=== PATIENT | male | born 1990 | race African-American/Black ===

== ENCOUNTER 2016-04-27 04:52 | Emergency (ER) | payer OTHER ==
[2016-04-27] MEDS ORDERED: ONDANSETRON 4MG/2ML VIAL (J2405) As Ordered ONE (05:59)
[2016-04-27 06:30] LABS: BASO % 0.2 % (0.0-1.0); EOS # 0.2 K/mm3 (0.0-0.50); EOS % 1.5 % (0.0-3.0); LARGE UNSTAINED CELL # 0.1 K/mm3 (0.0-0.4); LARGE UNSTAINED CELL % 0.5 % (0.0-4.0); LYMPH # 0.5 K/mm3 (1.5-6.5); LYMPH % 4.5 % (24.0-44.0); MEAN CORPUSCULAR HEMOGLOBIN 29.8 pg (27.0-33.0); MEAN CORPUSCULAR HGB CONC 34.2 g/dl (32.0-36.5); MEAN CORPUSCULAR VOLUME 87.3 fl (80.0-96.0); MONO # 0.6 K/mm3 (0.0-0.8); MONO % 5.7 % (0.0-5.0); NEUTROPHILS # 9.4 K/mm3 (1.8-7.7); NEUTROPHILS % 87.6 % (36.0-66.0); PLATELET COUNT, AUTOMATED 169 k/mm3 (150-450); RED CELL DISTRIBUTION WIDTH 12.7 % (11.5-14.5); WHITE BLOOD COUNT 10.7 K/mm3 (4.0-10.0)
[2016-04-27 06:52] LABS: ALBUMIN 4.2 GM/DL (3.2-5.2); ALBUMIN/GLOBULIN RATIO 1.31 (1.00-1.93); ALKALINE PHOSPHATASE 80 U/L (45-117); ALT/SGPT 23 U/L (12-78); ANION GAP 10 MEQ/L (8-16); AST/SGOT 21 U/L (15-37); BILIRUBIN,DIRECT 0.2 MG/DL (0.0-0.2); BILIRUBIN,TOTAL 1.1 MG/DL (0.2-1.0); BLOOD UREA NITROGEN 22 MG/DL (7-18); CALCIUM LEVEL 8.9 MG/DL (8.5-10.1); CARBON DIOXIDE LEVEL 30 MEQ/L (21-32); CHLORIDE LEVEL 103 MEQ/L (98-107); CREATININE FOR GFR 1.19 MG/DL (0.70-1.30); GLOMERULAR FILTRATION RATE > 60.0 (>60); GLUCOSE, FASTING 100 MG/DL (70-105); POTASSIUM SERUM 4.1 MEQ/L (3.5-5.1); SODIUM LEVEL 143 MEQ/L (136-145); TOTAL PROTEIN 7.4 GM/DL (6.4-8.2)
--- NOTE | 2016-04-27 07:50 | EDDOCDS ---
Physician Documentation [facility] Name: Heydi Castro Age: 26 yrs Sex: Male : 1990 Arrival Date: 04/27/2016 Time: 04:52 Bed 14 Private MD: Disposition: 04/27/16 07:27 Discharged to Home/Self Care. Impression: Vomiting, Diarrhea, unspecified. - Condition is Stable. - Discharge Instructions: Diarrhea, Nausea and Vomiting, Diarrhea, [id number]. - Prescriptions for ZOFRAN ODT 4 mg - dissolve 1 tablet by ORAL route 4 times per day As needed do not chew, do not swallow whole; 10 tablet. - Medication Reconciliation, Local Pharmacy Hours form. - Follow up: [facility]; When: Call to arrange an appointment. - Problem is new. - Symptoms are resolved. Historical: - Allergies: No known drug Allergies; - Home Meds: 1. none - PMHx: none; - PSHx: left ankle; - Social history: Smoking status: Patient states was never smoker of tobacco. No barriers to communication noted, The patient speaks fluent Maltese. - Family history: Not pertinent. - : The pt / caregiver states he / she is not on anticoagulants. Home medication list is obtained from the patient. - Exposure Risk Screening:: None identified. Vital Signs: 04/27 05:00 BP 141 / 76; Pulse 74; Resp 18 S; Temp 97.0(TE); Pulse Ox 97% on R/A; Weight 76.2 kg / af2 167.99 lbs (R); Height 5 ft. 8 in. (172.72 cm) (R); Pain 4/10; 07:12 BP 122 / 65; Pulse 56; Resp 16; Temp 97.6(O); Pulse Ox 99% on R/A; Pain 0/10; ja5 05:00 Body Mass Index 25.54 (76.20 kg, 172.72 cm) af2 MDM: 05:43 IV Saline Lock ordered. br1 05:43 NS 0.9% 1000 ml IV at bolus once ordered. br1 05:43 Ondansetron 4 mg IVP once ordered. br1 05:44 CBC with Diff Ordered. EDMS 05:44 BMP Ordered. EDMS 05:44 Liver Profile Ordered. EDMS 05:44 Lipase Ordered. EDMS 07:01 CBC with Diff Reviewed. sd1 07:01 BMP Reviewed. sd1 07:01 Liver Profile Reviewed. sd1 07:01 Lipase Reviewed. sd1 07:02 Fluid Challenge ordered. sd1 07:41 Financial registration complete. mm15 Administered Medications: 06:00 Drug: NS 0.9% 1000 ml [sodium chloride 0.9 % intravenous solution] Route: IV; Rate: cf2 bolus; Site: left antecubital; 07:48 Follow up: IV Status: Completed infusion; IV Intake: 1000ml jc4 06:00 Drug: Ondansetron 4 mg [ondansetron HCl 2 mg/mL intravenous solution (2 mL)] Route: cf2 IVP; Site: left antecubital; Signatures: Dispatcher [employer] [facility] Lynda Hendrickson MD MD sd1 Caleb Stroud MD MD br1 Chantal Luna RN RN jc4 Cinthya Sr mm15 Judy Amador RN RN af2 Nia Pritchett RN RN cf2 MTDD
--- NOTE | 2016-04-27 07:50 | EDDOCDS ---
Nurse's Notes [facility] Name: Heydi Castro Age: 26 yrs Sex: Male : 1990 Arrival Date: 04/27/2016 Time: 04:52 Bed 14 Private MD: Diagnosis: Vomiting;Diarrhea, unspecified Presentation: 04/27 04:59 Presenting complaint: Patient states: nausea and vomiting, abdominal pain since af2 [id number] this am. reports bile. Risk factors: the patient reports not having a history of previous torsion. Adult Sepsis Screening: The patient does not have new or worsening altered mentation. Patient's respiratory rate is less than 22. Systolic blood pressure is greater than 100. Patient has a qSOFA score of 0- Negative Sepsis Screen. Suicide/Homicide risk assessment- the patient denies having any suicidal and/or homicidal ideations and does not present with any other emotional, behavioral or mental health complaints. 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 Transition of care: patient was not received from another setting of care. 04:59 Acuity: MAURICE Level 3 af2 04:59 Method Of Arrival: Walkin/Carried/Asstd af2 Triage Assessment: 05:01 General: Appears in no apparent distress, Behavior is cooperative. Pain: Denies pain. af2 Pt Declines HIV testing. GI: Reports lower abdominal pain, nausea, vomiting. Historical: - Allergies: No known drug Allergies; - Home Meds: 1. none - PMHx: none; - PSHx: left ankle; - Social history: Smoking status: Patient states was never smoker of tobacco. No barriers to communication noted, The patient speaks fluent [place]. - Family history: Not pertinent. - : The pt / caregiver states he / she is not on anticoagulants. Home medication list is obtained from the patient. - Exposure Risk Screening:: None identified. Screenin:41 Screening information is obtained from the patient. Fall risk: No risks identified. cf2 Assistance ADL's: requires no assistance with activities of daily living. Abuse/DV Screen: The patient / caregiver reports he/she is: not in a situation that causes fear, pain or injury. Nutritional screening: No deficits noted. Advance Directives: Further advance directive information is declined. home support is adequate. Assessment: 06:41 Adult Sepsis Screening: The patient does not have new or worsening altered mentation. cf2 Patient's respiratory rate is less than 22. Systolic blood pressure is greater than 100. Patient has a qSOFA score of 0- Negative Sepsis Screen. General: Appears distressed, Behavior is appropriate for age, cooperative. Pain: Denies pain. Neurological: No deficits noted. EENT: No deficits noted. Cardiovascular: No deficits noted. Respiratory: No deficits noted. GI: Abdomen is flat, non- distended Bowel sounds present X 4 quads. Abd is soft Abd is non tender Reports cramping, diarrhea, nausea, vomiting. : No deficits noted. Derm: No deficits noted. Musculoskeletal: No deficits noted. Injury Description: No known injury. 07:11 General: Appears in no apparent distress, Behavior is appropriate for age, cooperative. ja5 Pain: Denies pain. Neurological: Level of Consciousness is awake, alert, Oriented to person, place, time. Cardiovascular: Heart tones S1 S2 present. Respiratory: Airway is patent Respiratory effort is even, unlabored, Respiratory pattern is regular, symmetrical. GI: Abdomen is flat, non- distended Bowel sounds present X 4 quads. Abd is soft X 4 quads Abd is non tender X 4 quads Denies nausea. Derm: Skin is pink, warm & dry. 07:47 General: Appears in no apparent distress, Behavior is cooperative. Pain: Denies pain. jc4 Neurological: Level of Consciousness is awake, alert, Oriented to person, place, time. Respiratory: Airway is patent Respiratory effort is even, unlabored, Respiratory pattern is regular, symmetrical. GI: Reports tolerance of fluids, Denies nausea. Derm: Skin is pink, warm & dry. Vital Signs: 05:00 BP 141 / 76; Pulse 74; Resp 18 S; Temp 97.0(TE); Pulse Ox 97% on R/A; Weight 76.2 kg af2 (R); Height 5 ft. 8 in. (172.72 cm) (R); Pain 4/10; 07:12 BP 122 / 65; Pulse 56; Resp 16; Temp 97.6(O); Pulse Ox 99% on R/A; Pain 0/10; ja5 05:00 Body Mass Index 25.54 (76.20 kg, 172.72 cm) af2 Vitals: 05:00 Log In Time: April 27, 2016 at 04:54. af2 ED Course: 04:53 Patient visited by Nell Roca Reg. hs2 04:53 Patient moved to Waiting hs2 05:00 Triage Initiated af2 05:41 Judy Amador RN is Primary Nurse. sls1 05:41 Patient moved to 14 sls1 05:57 Primary Nurse role handed off by Judy Amador RN cf2 05:57 Nia Pritchett RN is Primary Nurse. cf2 05:57 Patient visited by Nia Pritchett RN. cf2 06:37 Patient visited by Nia Pritchett RN. cf2 06:41 Patient visited by Nia Pritchett RN. cf2 06:41 The patient / caregiver is instructed regarding the plan of care and ED course. Patient cf2 has correct armband on for positive identification. Placed in gown. Bed in low position. Call light in reach. Side rails up X 1. Side rails up X2. Adult w/ patient. Property :Personal belongings accompany Pt. Door closed. Noise minimized. Visitors limited. Lights dimmed. Moved to private room. Verbal reassurance given. Warm blanket given. Pillow given. Head of bed elevated. 06:41 Inserted saline lock: 20 gauge in left antecubital area and blood collected. The cf2 patient tolerated the procedure well. No procedures done that require assistance. 06:54 Patient visited by Nia Pritchett RN. cf2 06:58 Lynda Hendrickson MD is Attending Physician. sd1 06:58 Patient visited by Lynda Hendrickson MD. sd1 07:03 Chantal Luna, JOHN PAUL is Primary Nurse. jc4 07:05 Leyda Abreu,RN is Primary Nurse. ja5 07:12 Patient visited by Leyda Abreu,JOHN PAUL. ja5 07:19 Patient visited by Jessie Marcus. nb2 07:19 Diet: Patient given juice. Tolerated well. nb2 07:27 Marie Navas [facility] is Referral Physician. sd1 07:48 Discontinued lock intact, bleeding controlled, pressure dressing applied, No jc4 redness/swelling at site. Administered Medications: 06:00 Drug: NS 0.9% 1000 ml [sodium chloride 0.9 % intravenous solution] Route: IV; Rate: cf2 bolus; Site: left antecubital; 07:48 Follow up: IV Status: Completed infusion; IV Intake: 1000ml jc4 06:00 Drug: Ondansetron 4 mg [ondansetron HCl 2 mg/mL intravenous solution (2 mL)] Route: cf2 IVP; Site: left antecubital; Intake: 07:48 IV: 1000.00ml; Total: 1000.00ml. jc4 Order Results: Lab Order: CBC with Diff; SPEC'M 04/27/16 06:18 Test: WHITE BLOOD COUNT; Value: 10.7; Range: 4.0-10.0; Abnormal: Above high normal; Units: K/mm3; Status: F Test: RED BLOOD COUNT; Value: 5.39; Range: 4.30-6.10; Units: M/mm3; Status: F Test: HEMOGLOBIN; Value: 16.1; Range: 14.0-18.0; Units: g/dl; Status: F Test: HEMATOCRIT; Value: 47.0; Range: 42.0-52.0; Units: %; Status: F Test: MEAN CORPUSCULAR VOLUME; Value: 87.3; Range: 80.0-96.0; Units: fl; Status: F Test: MEAN CORPUSCULAR HEMOGLOBIN; Value: 29.8; Range: 27.0-33.0; Units: pg; Status: F Test: MEAN CORPUSCULAR HGB CONC; Value: 34.2; Range: 32.0-36.5; Units: g/dl; Status: F Test: RED CELL DISTRIBUTION WIDTH; Value: 12.7; Range: 11.5-14.5; Units: %; Status: F Test: PLATELET COUNT, AUTOMATED; Value: 169; Range: 150-450; Units: k/mm3; Status: F Test: NEUTROPHILS %; Value: 87.6; Range: 36.0-66.0; Abnormal: Above high normal; Units: %; Status: F Test: LYMPH %; Value: 4.5; Range: 24.0-44.0; Abnormal: Below low normal; Units: %; Status: F Test: MONO %; Value: 5.7; Range: 0.0-5.0; Abnormal: Above high normal; Units: %; Status: F Test: EOS %; Value: 1.5; Range: 0.0-3.0; Units: %; Status: F Test: BASO %; Value: 0.2; Range: 0.0-1.0; Units: %; Status: F Test: LARGE UNSTAINED CELL %; Value: 0.5; Range: 0.0-4.0; Units: %; Status: F Test: NEUTROPHILS #; Value: 9.4; Range: 1.8-7.7; Abnormal: Above high normal; Units: K/mm3; Status: F Test: LYMPH #; Value: 0.5; Range: 1.5-6.5; Abnormal: Below low normal; Units: K/mm3; Status: F Test: MONO #; Value: 0.6; Range: 0.0-0.8; Units: K/mm3; Status: F Test: EOS #; Value: 0.2; Range: 0.0-0.50; Units: K/mm3; Status: F Test: BASO #; Value: 0.0; Range: 0.0-0.2; Units: K/mm3; Status: F Test: LARGE UNSTAINED CELL #; Value: 0.1; Range: 0.0-0.4; Units: K/mm3; Status: F Lab Order: [facility]; SPEC'M 04/27/16 06:18 Test: GLUCOSE, FASTING; Value: 100; Range: 70-105; Units: MG/DL; Status: F Test: BLOOD UREA NITROGEN; Value: 22; Range: 7-18; Abnormal: Above high normal; Units: MG/DL; Status: F Test: CREATININE FOR GFR; Value: 1.19; Range: 0.70-1.30; Units: MG/DL; Status: F Test: GLOMERULAR FILTRATION RATE; Value: > 60.0; Range: >60; Status: F Test: SODIUM LEVEL; Value: 143; Range: 136-145; Units: MEQ/L; Status: F Test: POTASSIUM SERUM; Value: 4.1; Range: 3.5-5.1; Units: MEQ/L; Status: F Test: CHLORIDE LEVEL; Value: 103; Range: 98-107; Units: MEQ/L; Status: F Test: CARBON DIOXIDE LEVEL; Value: 30; Range: 21-32; Units: MEQ/L; Status: F Test: ANION GAP; Value: 10; Range: 8-16; Units: MEQ/L; Status: F Test: CALCIUM LEVEL; Value: 8.9; Range: 8.5-10.1; Units: MG/DL; Status: F Test Note: ; Units are mL/min/1.73 m2 Chronic Kidney Disease Staging per NKF: Stage I & II GFR >=60 Normal to Mildly Decreased Stage III GFR 30-59 Moderately Decreased Stage IV GFR 15-29 Severely Decreased Stage V GFR <15 Very Little GFR Left ESRD GFR <15 on [employer] Lab Order: Liver Profile; SPEC'M 04/27/16 06:18 Test: AST/SGOT; Value: 21; Range: 15-37; Units: U/L; Status: F Test: ALT/SGPT; Value: 23; Range: 12-78; Units: U/L; Status: F Test: ALKALINE PHOSPHATASE; Value: 80; Range: 45-117; Units: U/L; Status: F Test: BILIRUBIN,TOTAL; Value: 1.1; Range: 0.2-1.0; Abnormal: Above high normal; Units: MG/DL; Status: F Test: BILIRUBIN,DIRECT; Value: 0.2; Range: 0.0-0.2; Units: MG/DL; Status: F Test: TOTAL PROTEIN; Value: 7.4; Range: 6.4-8.2; Units: GM/DL; Status: F Test: ALBUMIN; Value: 4.2; Range: 3.2-5.2; Units: GM/DL; Status: F Test: ALBUMIN/GLOBULIN RATIO; Value: 1.31; Range: 1.00-1.93; Status: F Lab Order: Lipase; SPEC'M 04/27/16 06:18 Test: LIPASE; Value: 99; Range: 73-393; Units: U/L; Status: F Outcome: 07:27 Discharge ordered by Provider. sd1 07:49 Discharge Assessment: Patient awake, alert and oriented x 3. No cognitive and/or jc4 functional deficits noted. Patient verbalized understanding of disposition instructions. patient administered narcotics - no. The following High Risk Discharge criteria are identified: None. Discharged to home ambulatory. Condition: stable. Discharge instructions given to patient, Instructed on discharge instructions, follow up and referral plans. medication usage, diet, Demonstrated understanding of instructions, medications, Pt was receptive of discharge instructions/ teaching. No special radiology studies were completed. 07:49 Patient left the ED. jc4 Signatures: Lynda Hendrickson MD MD sd1 Chantal Luna, RN RN jc4 Liliam Alcantara RN RN sls1 Judy AmadorRN RN af2 Nell Roca, Reg Reg hs2 Nia PritchettRN RN 2 Jessie Marcus2 Leyda Abreu,RN RN ja5 MTDD
--- NOTE | 2016-04-29 08:50 | EDDOCDS ---
Physician Documentation [facility] Name: Heydi Castro Age: 26 yrs Sex: Male : 1990 Arrival Date: 04/27/2016 Time: 04:52 Bed 14 Private MD: Disposition: 04/27/16 07:27 Discharged to Home/Self Care. Impression: Vomiting, Diarrhea, unspecified. - Condition is Stable. - Discharge Instructions: Diarrhea, Nausea and Vomiting, Diarrhea, [id number]. - Prescriptions for ZOFRAN ODT 4 mg - dissolve 1 tablet by ORAL route 4 times per day As needed do not chew, do not swallow whole; 10 tablet. - Medication Reconciliation, Local Pharmacy Hours form. - Follow up: [facility]; When: Call to arrange an appointment. - Problem is new. - Symptoms are resolved. Historical: - Allergies: No known drug Allergies; - Home Meds: 1. none - PMHx: none; - PSHx: left ankle; - Social history: Smoking status: Patient states was never smoker of tobacco. No barriers to communication noted, The patient speaks fluent [place]ian. - Family history: Not pertinent. - : The pt / caregiver states he / she is not on anticoagulants. Home medication list is obtained from the patient. - Exposure Risk Screening:: None identified. Vital Signs: 04/27 05:00 BP 141 / 76; Pulse 74; Resp 18 S; Temp 97.0(TE); Pulse Ox 97% on R/A; Weight 76.2 kg / af2 167.99 lbs (R); Height 5 ft. 8 in. (172.72 cm) (R); Pain 4/10; 07:12 BP 122 / 65; Pulse 56; Resp 16; Temp 97.6(O); Pulse Ox 99% on R/A; Pain 0/10; ja5 05:00 Body Mass Index 25.54 (76.20 kg, 172.72 cm) af2 MDM: 05:43 IV Saline Lock ordered. br1 05:43 NS 0.9% 1000 ml IV at bolus once ordered. br1 05:43 Ondansetron 4 mg IVP once ordered. br1 05:44 CBC with Diff Ordered. EDMS 05:44 BMP Ordered. EDMS 05:44 Liver Profile Ordered. EDMS 05:44 Lipase Ordered. EDMS 07:01 CBC with Diff Reviewed. sd1 07:01 BMP Reviewed. sd1 07:01 Liver Profile Reviewed. sd1 07:01 Lipase Reviewed. sd1 07:02 Fluid Challenge ordered. sd1 07:41 Financial registration complete. mm15 08:35 [facility] Payment Agreement was scanned into [employer] and attached to record. mm15 Administered Medications: 06:00 Drug: NS 0.9% 1000 ml [sodium chloride 0.9 % intravenous solution] Route: IV; Rate: cf2 bolus; Site: left antecubital; 07:48 Follow up: IV Status: Completed infusion; IV Intake: 1000ml jc4 06:00 Drug: Ondansetron 4 mg [ondansetron HCl 2 mg/mL intravenous solution (2 mL)] Route: cf2 IVP; Site: left antecubital; Signatures: Dispatcher [employer] [facility] Lynda Hendrickson MD MD sd1 Caleb Stroud MD MD br1 Chantal Luna, RN RN jc4 Cinthya Sr mm15 Judy Amador,RN RN af2 Nia Pritchett RN RN cf2 The chart was reviewed and I authenticate all verbal orders and agree with the evaluation and treatment provided.Attachments: 08:35 [facility] Payment Agreement mm15 Chart Complete MTDD
--- NOTE | 2016-04-29 08:50 | EDDOCDS ---
Nurse's Notes [facility] Name: Heydi Castro Age: 26 yrs Sex: Male : 1990 Arrival Date: 04/27/2016 Time: 04:52 Bed 14 Private MD: Diagnosis: Vomiting;Diarrhea, unspecified Presentation: 04/27 04:59 Presenting complaint: Patient states: nausea and vomiting, abdominal pain since af2 [id number] this am. reports bile. Risk factors: the patient reports not having a history of previous torsion. Adult Sepsis Screening: The patient does not have new or worsening altered mentation. Patient's respiratory rate is less than 22. Systolic blood pressure is greater than 100. Patient has a qSOFA score of 0- Negative Sepsis Screen. Suicide/Homicide risk assessment- the patient denies having any suicidal and/or homicidal ideations and does not present with any other emotional, behavioral or mental health complaints. 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 Transition of care: patient was not received from another setting of care. 04:59 Acuity: MAURICE Level 3 af2 04:59 Method Of Arrival: Walkin/Carried/Asstd af2 Triage Assessment: 05:01 General: Appears in no apparent distress, Behavior is cooperative. Pain: Denies pain. af2 Pt Declines HIV testing. GI: Reports lower abdominal pain, nausea, vomiting. Historical: - Allergies: No known drug Allergies; - Home Meds: 1. none - PMHx: none; - PSHx: left ankle; - Social history: Smoking status: Patient states was never smoker of tobacco. No barriers to communication noted, The patient speaks fluent Maltese. - Family history: Not pertinent. - : The pt / caregiver states he / she is not on anticoagulants. Home medication list is obtained from the patient. - Exposure Risk Screening:: None identified. Screenin:41 Screening information is obtained from the patient. Fall risk: No risks identified. cf2 Assistance ADL's: requires no assistance with activities of daily living. Abuse/DV Screen: The patient / caregiver reports he/she is: not in a situation that causes fear, pain or injury. Nutritional screening: No deficits noted. Advance Directives: Further advance directive information is declined. home support is adequate. Assessment: 06:41 Adult Sepsis Screening: The patient does not have new or worsening altered mentation. cf2 Patient's respiratory rate is less than 22. Systolic blood pressure is greater than 100. Patient has a qSOFA score of 0- Negative Sepsis Screen. General: Appears distressed, Behavior is appropriate for age, cooperative. Pain: Denies pain. Neurological: No deficits noted. EENT: No deficits noted. Cardiovascular: No deficits noted. Respiratory: No deficits noted. GI: Abdomen is flat, non- distended Bowel sounds present X 4 quads. Abd is soft Abd is non tender Reports cramping, diarrhea, nausea, vomiting. : No deficits noted. Derm: No deficits noted. Musculoskeletal: No deficits noted. Injury Description: No known injury. 07:11 General: Appears in no apparent distress, Behavior is appropriate for age, cooperative. ja5 Pain: Denies pain. Neurological: Level of Consciousness is awake, alert, Oriented to person, place, time. Cardiovascular: Heart tones S1 S2 present. Respiratory: Airway is patent Respiratory effort is even, unlabored, Respiratory pattern is regular, symmetrical. GI: Abdomen is flat, non- distended Bowel sounds present X 4 quads. Abd is soft X 4 quads Abd is non tender X 4 quads Denies nausea. Derm: Skin is pink, warm & dry. 07:47 General: Appears in no apparent distress, Behavior is cooperative. Pain: Denies pain. jc4 Neurological: Level of Consciousness is awake, alert, Oriented to person, place, time. Respiratory: Airway is patent Respiratory effort is even, unlabored, Respiratory pattern is regular, symmetrical. GI: Reports tolerance of fluids, Denies nausea. Derm: Skin is pink, warm & dry. Vital Signs: 05:00 BP 141 / 76; Pulse 74; Resp 18 S; Temp 97.0(TE); Pulse Ox 97% on R/A; Weight 76.2 kg af2 (R); Height 5 ft. 8 in. (172.72 cm) (R); Pain 4/10; 07:12 BP 122 / 65; Pulse 56; Resp 16; Temp 97.6(O); Pulse Ox 99% on R/A; Pain 0/10; ja5 05:00 Body Mass Index 25.54 (76.20 kg, 172.72 cm) af2 Vitals: 05:00 Log In Time: April 27, 2016 at 04:54. af2 ED Course: 04:53 Patient visited by Nell Roca Reg. hs2 04:53 Patient moved to Waiting hs2 05:00 Triage Initiated af2 05:41 Judy Amador RN is Primary Nurse. sls1 05:41 Patient moved to 14 sls1 05:57 Primary Nurse role handed off by Judy Amador RN cf2 05:57 Nia Pritchett RN is Primary Nurse. cf2 05:57 Patient visited by Nia Pritchett RN. cf2 06:37 Patient visited by Nia Pritchett RN. cf2 06:41 Patient visited by Nia Pritchett RN. cf2 06:41 The patient / caregiver is instructed regarding the plan of care and ED course. Patient cf2 has correct armband on for positive identification. Placed in gown. Bed in low position. Call light in reach. Side rails up X 1. Side rails up X2. Adult w/ patient. Property :Personal belongings accompany Pt. Door closed. Noise minimized. Visitors limited. Lights dimmed. Moved to private room. Verbal reassurance given. Warm blanket given. Pillow given. Head of bed elevated. 06:41 Inserted saline lock: 20 gauge in left antecubital area and blood collected. The cf2 patient tolerated the procedure well. No procedures done that require assistance. 06:54 Patient visited by Nia Pritchett RN. cf2 06:58 Lynda Hendrickson MD is Attending Physician. sd1 06:58 Patient visited by Lynda Hendrickson MD. sd1 07:03 Chantal Luna, JOHN PAUL is Primary Nurse. jc4 07:05 Leyda Abreu,RN is Primary Nurse. ja5 07:12 Patient visited by Leyda Abreu,JOHN PAUL. ja5 07:19 Patient visited by Jessie Marcus. nb2 07:19 Diet: Patient given juice. Tolerated well. nb2 07:27 Marie Navas [facility] is Referral Physician. sd1 07:48 Discontinued lock intact, bleeding controlled, pressure dressing applied, No jc4 redness/swelling at site. 08:35 [facility] Payment Agreement was scanned into [employer] and attached to record. mm15 09:09 Patient name changed from Trayvanne\S\\S\Fellon\S\ to Trayvanne\S\ \S\Fellon. EDMS Administered Medications: 06:00 Drug: NS 0.9% 1000 ml [sodium chloride 0.9 % intravenous solution] Route: IV; Rate: cf2 bolus; Site: left antecubital; 07:48 Follow up: IV Status: Completed infusion; IV Intake: 1000ml jc4 06:00 Drug: Ondansetron 4 mg [ondansetron HCl 2 mg/mL intravenous solution (2 mL)] Route: cf2 IVP; Site: left antecubital; Intake: 07:48 IV: 1000.00ml; Total: 1000.00ml. jc4 Order Results: Lab Order: CBC with Diff; SPEC'M 04/27/16 06:18 Test: WHITE BLOOD COUNT; Value: 10.7; Range: 4.0-10.0; Abnormal: Above high normal; Units: K/mm3; Status: F Test: RED BLOOD COUNT; Value: 5.39; Range: 4.30-6.10; Units: M/mm3; Status: F Test: HEMOGLOBIN; Value: 16.1; Range: 14.0-18.0; Units: g/dl; Status: F Test: HEMATOCRIT; Value: 47.0; Range: 42.0-52.0; Units: %; Status: F Test: MEAN CORPUSCULAR VOLUME; Value: 87.3; Range: 80.0-96.0; Units: fl; Status: F Test: MEAN CORPUSCULAR HEMOGLOBIN; Value: 29.8; Range: 27.0-33.0; Units: pg; Status: F Test: MEAN CORPUSCULAR HGB CONC; Value: 34.2; Range: 32.0-36.5; Units: g/dl; Status: F Test: RED CELL DISTRIBUTION WIDTH; Value: 12.7; Range: 11.5-14.5; Units: %; Status: F Test: PLATELET COUNT, AUTOMATED; Value: 169; Range: 150-450; Units: k/mm3; Status: F Test: NEUTROPHILS %; Value: 87.6; Range: 36.0-66.0; Abnormal: Above high normal; Units: %; Status: F Test: LYMPH %; Value: 4.5; Range: 24.0-44.0; Abnormal: Below low normal; Units: %; Status: F Test: MONO %; Value: 5.7; Range: 0.0-5.0; Abnormal: Above high normal; Units: %; Status: F Test: EOS %; Value: 1.5; Range: 0.0-3.0; Units: %; Status: F Test: BASO %; Value: 0.2; Range: 0.0-1.0; Units: %; Status: F Test: LARGE UNSTAINED CELL %; Value: 0.5; Range: 0.0-4.0; Units: %; Status: F Test: NEUTROPHILS #; Value: 9.4; Range: 1.8-7.7; Abnormal: Above high normal; Units: K/mm3; Status: F Test: LYMPH #; Value: 0.5; Range: 1.5-6.5; Abnormal: Below low normal; Units: K/mm3; Status: F Test: MONO #; Value: 0.6; Range: 0.0-0.8; Units: K/mm3; Status: F Test: EOS #; Value: 0.2; Range: 0.0-0.50; Units: K/mm3; Status: F Test: BASO #; Value: 0.0; Range: 0.0-0.2; Units: K/mm3; Status: F Test: LARGE UNSTAINED CELL #; Value: 0.1; Range: 0.0-0.4; Units: K/mm3; Status: F Lab Order: [facility]; SPEC'M 04/27/16 06:18 Test: GLUCOSE, FASTING; Value: 100; Range: 70-105; Units: MG/DL; Status: F Test: BLOOD UREA NITROGEN; Value: 22; Range: 7-18; Abnormal: Above high normal; Units: MG/DL; Status: F Test: CREATININE FOR GFR; Value: 1.19; Range: 0.70-1.30; Units: MG/DL; Status: F Test: GLOMERULAR FILTRATION RATE; Value: > 60.0; Range: >60; Status: F Test: SODIUM LEVEL; Value: 143; Range: 136-145; Units: MEQ/L; Status: F Test: POTASSIUM SERUM; Value: 4.1; Range: 3.5-5.1; Units: MEQ/L; Status: F Test: CHLORIDE LEVEL; Value: 103; Range: 98-107; Units: MEQ/L; Status: F Test: CARBON DIOXIDE LEVEL; Value: 30; Range: 21-32; Units: MEQ/L; Status: F Test: ANION GAP; Value: 10; Range: 8-16; Units: MEQ/L; Status: F Test: CALCIUM LEVEL; Value: 8.9; Range: 8.5-10.1; Units: MG/DL; Status: F Test Note: ; Units are mL/min/1.73 m2 Chronic Kidney Disease Staging per NKF: Stage I & II GFR >=60 Normal to Mildly Decreased Stage III GFR 30-59 Moderately Decreased Stage IV GFR 15-29 Severely Decreased Stage V GFR <15 Very Little GFR Left ESRD GFR <15 on [facility] Lab Order: Liver Profile; SPEC'M 04/27/16 06:18 Test: AST/SGOT; Value: 21; Range: 15-37; Units: U/L; Status: F Test: ALT/SGPT; Value: 23; Range: 12-78; Units: U/L; Status: F Test: ALKALINE PHOSPHATASE; Value: 80; Range: 45-117; Units: U/L; Status: F Test: BILIRUBIN,TOTAL; Value: 1.1; Range: 0.2-1.0; Abnormal: Above high normal; Units: MG/DL; Status: F Test: BILIRUBIN,DIRECT; Value: 0.2; Range: 0.0-0.2; Units: MG/DL; Status: F Test: TOTAL PROTEIN; Value: 7.4; Range: 6.4-8.2; Units: GM/DL; Status: F Test: ALBUMIN; Value: 4.2; Range: 3.2-5.2; Units: GM/DL; Status: F Test: ALBUMIN/GLOBULIN RATIO; Value: 1.31; Range: 1.00-1.93; Status: F Lab Order: Lipase; SPEC'M 04/27/16 06:18 Test: LIPASE; Value: 99; Range: 73-393; Units: U/L; Status: F Outcome: 07:27 Discharge ordered by Provider. sd1 07:49 Discharge Assessment: Patient awake, alert and oriented x 3. No cognitive and/or jc4 functional deficits noted. Patient verbalized understanding of disposition instructions. patient administered narcotics - no. The following High Risk Discharge criteria are identified: None. Discharged to home ambulatory. Condition: stable. Discharge instructions given to patient, Instructed on discharge instructions, follow up and referral plans. medication usage, diet, Demonstrated understanding of instructions, medications, Pt was receptive of discharge instructions/ teaching. No special radiology studies were completed. 07:49 Patient left the ED. jc4 Signatures: Dispatcher [employer] EDSD Lynda Hendrickson MD MD sd1 Chantal Luna, RN RN jc4 Liliam Alcantara RN RN sls1 Cinthya Sr mm15 Judy Amador,RN RN af2 Nell Roca, Reg Reg hs2 Nia Pritchett,RN RN cf2 Jessie Marcus2 Leyda Abreu,RN RN ja5 Chart Complete MTDD
--- NOTE | 2016-04-29 08:50 | EDDOCDS ---
Physician Documentation [facility] Name: Heydi Castro Age: 26 yrs Sex: Male : 1990 Arrival Date: 04/27/2016 Time: 04:52 Bed 14 Private MD: Disposition: 04/27/16 07:27 Discharged to Home/Self Care. Impression: Vomiting, Diarrhea, unspecified. - Condition is Stable. - Discharge Instructions: Diarrhea, Nausea and Vomiting, Diarrhea, Khle-[id number]. - Prescriptions for ZOFRAN ODT 4 mg - dissolve 1 tablet by ORAL route 4 times per day As needed do not chew, do not swallow whole; 10 tablet. - Medication Reconciliation, Local Pharmacy Hours form. - Follow up: [facility] [place]; When: Call to arrange an appointment. - Problem is new. - Symptoms are resolved. Historical: - Allergies: No known drug Allergies; - Home Meds: 1. none - PMHx: none; - PSHx: left ankle; - Social history: Smoking status: Patient states was never smoker of tobacco. No barriers to communication noted, The patient speaks fluent Slovenian. - Family history: Not pertinent. - : The pt / caregiver states he / she is not on anticoagulants. Home medication list is obtained from the patient. - Exposure Risk Screening:: None identified. Vital Signs: 04/27 05:00 BP 141 / 76; Pulse 74; Resp 18 S; Temp 97.0(TE); Pulse Ox 97% on R/A; Weight 76.2 kg / af2 167.99 lbs (R); Height 5 ft. 8 in. (172.72 cm) (R); Pain 4/10; 07:12 BP 122 / 65; Pulse 56; Resp 16; Temp 97.6(O); Pulse Ox 99% on R/A; Pain 0/10; ja5 05:00 Body Mass Index 25.54 (76.20 kg, 172.72 cm) af2 MDM: 05:43 IV Saline Lock ordered. br1 05:43 NS 0.9% 1000 ml IV at bolus once ordered. br1 05:43 Ondansetron 4 mg IVP once ordered. br1 05:44 CBC with Diff Ordered. EDMS 05:44 BMP Ordered. EDMS 05:44 Liver Profile Ordered. EDMS 05:44 Lipase Ordered. EDMS 07:01 CBC with Diff Reviewed. sd1 07:01 BMP Reviewed. sd1 07:01 Liver Profile Reviewed. sd1 07:01 Lipase Reviewed. sd1 07:02 Fluid Challenge ordered. sd1 07:41 Financial registration complete. mm15 08:35 [facility] Payment Agreement was scanned into [employer] and attached to record. mm15 Administered Medications: 06:00 Drug: NS 0.9% 1000 ml [sodium chloride 0.9 % intravenous solution] Route: IV; Rate: cf2 bolus; Site: left antecubital; 07:48 Follow up: IV Status: Completed infusion; IV Intake: 1000ml jc4 06:00 Drug: Ondansetron 4 mg [ondansetron HCl 2 mg/mL intravenous solution (2 mL)] Route: cf2 IVP; Site: left antecubital; Signatures: Dispatcher [employer] Payment EDKS Lynda Hendrickson MD MD sd1 Caleb Stroud MD MD br1 Chantal Luna, RN RN jc4 Cinthya Sr mm15 Judy Amador,RN RN af2 Nia Pritchett RN RN cf2 The chart was reviewed and I authenticate all verbal orders and agree with the evaluation and treatment provided.Attachments: 08:35 [facility] Payment Agreement mm15 Chart Complete MTDD
== END 2016-04-27 07:49 | disposition home or self-care (01) ==
LOC: M ED 04:52
DX: R11.2 Nausea with vomiting, unspecified (principal); R19.7 Diarrhea, unspecified
CPT/HCPCS: 36415; 80048; 80076; 83690; 85025; 96361; 96374; 99284; J2405